=== PATIENT | male | born 1980 | race Caucasian/White ===

== ENCOUNTER 2016-05-16 09:10 | Emergency (ER) | payer MEDICAID ==
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
[2016-05-16 10:36] VITALS: BP 115/74; PULSE 88; RESP 14; TEMP 97.9; O2SAT 99
== END 2016-05-16 10:35 | disposition home or self-care (01) ==
DX: T33.531A Superficial frostbite of right finger(s), initial encounter (principal); T33.532A Superficial frostbite of left finger(s), initial encounter; T33.822A Superficial frostbite of left foot, initial encounter; T33.821A Superficial frostbite of right foot, initial encounter; T69.9XXA Effect of reduced temperature, unspecified, initial encounter; F17.200 Nicotine dependence, unspecified, uncomplicated; X31.XXXA Exposure to excessive natural cold, initial encounter